=== PATIENT | female | born 1945 | race Caucasian/White ===

== ENCOUNTER → 2017-06-27 | Outpatient (CLI) | payer BC, MEDICARE ==
[~2017-06-27] MED LIST: LIDOCAINE-MPF 1%, 5ML ONE
== END | disposition home or self-care (01) ==
LOC: RAD 09:25
PROVIDERS: ATTEND Otolaryngology Facial Plastic Surgery
DX: D44.0 Neoplasm of uncertain behavior of thyroid gland (principal); E04.1 Nontoxic single thyroid nodule
CPT/HCPCS: 10022; 76942; 88173